=== PATIENT | female | born 1935 | race Caucasian/White ===

== ENCOUNTER 2016-10-14 10:42 | Outpatient (CLI) | payer MEDICARE ==
[2016-10-14 11:27] LABS: #Basophils 0.1 thou/uL (0.0-0.2); #Eosinphils 0.2 thou/uL (0.0-0.7); #Lymphocytes 2.2 thou/uL (1.20-3.40); #Monocytes 0.7 thou/uL (0.11-0.59); #Neutrophils 6.9 thou/uL (1.40-6.50); %Lymphocytes 21.9 % (21.0-51.0); %Monocytes 7.3 % (0.0-10.0); %Neutrophils 67.8 % (42.0-75.0); Hemoglobin 13.7 g/dL (12.0-16.0); Mean Corpuscular HGB CONC 33.6 g/dL (32.0-36.0); Mean Corpuscular Hemoglobin 33.9 pg (27.0-31.0); Mean Platelet Volume 7.9 fL (7.4-10.4); Platelet Count 318 thou/uL (130-400); RBC Distribution Width 12.6 % (11.5-14.5); Red Blood Cell (RBC) Count 4.05 mill/uL (4.20-5.40); White Blood Cell (WBC) Count 10.2 thou/uL (4.8-10.8)
[2016-10-14 11:37] LABS: ALT (SGPT) 20 U/L (8-55); AST (SGOT) 25 U/L (5-34); Albumin 4.6 g/dL (3.4-4.8); Alkaline Phosphatase 87 U/L (40-150); Anion Gap 14 mmol/L (10-20); BUN (Urea Nitrogen) 29 mg/dL (9.8-20.1); Bilirubin, Total 0.4 mg/dL (0.2-1.2); Calc. Creatinine Clearance 0 mL/min (70-130); Calcium 10.3 mg/dL (7.8-10.44); Carbon Dioxide 25 mmol/L (23-31); Cardiac Risk 2.1 (Less than 4.5); Chloride 101 mmol/L (98-107); Cholesterol 187 mg/dL (< 200 Desired); Estimated GFR-MDRD 35; Globulin 3.2 g/dL (2.4-3.5); Glucose 122 mg/dL (83-110); HDL Cholesterol 89 mg/dL (>60 Neg Risk); LDL Cholesterol, Calculated 80 mg/dL; Potassium 3.8 mmol/L (3.5-5.1); Protein, Total 7.8 g/dL (5.8-8.1); Sodium 136 mmol/L (136-145); Triglycerides 89 mg/dL (Less than 150)
[2016-10-14 11:53] LABS: Free T4 (Free Thyroxine) 0.9 ng/dL (0.70-1.48); Thyroid Stimulating Hormone 6.4998 uIU/mL (0.35-4.94)
== END 2016-10-14 10:43 | disposition home or self-care (01) ==
LOC: HPCALD 10:42
PROVIDERS: ATTEND Family Medicine
DX: E03.9 Hypothyroidism, unspecified (principal)
CPT/HCPCS: 36415; 80053; 80061; 84439; 84443; 85025

== ENCOUNTER 2018-08-24 22:39 | Emergency (ER) | payer MEDICARE ==
[~2018-08-24 22:39] MED LIST: Iopamidol 370 76% 100 ML VIAL ONE
[2018-08-24] MEDS ORDERED: Acetaminophen 325 MG TAB ONE ×2 (23:30)
[2018-08-24 23:38] LABS: Band 6 % (5-11); Hemoglobin 13.2 g/dL (12.0-16.0); Lymphocytes 7 % (21-51); MDiff Complete? YES; Mean Corpuscular HGB CONC 33.5 g/dL (32.0-36.0); Mean Corpuscular Hemoglobin 31.7 pg (27.0-31.0); Mean Corpuscular Volume 94.6 fL (78.0-98.0); Mean Platelet Volume 8.8 fL (7.4-10.4); Monocytes 7 % (0-10); Neutrophil 79 % (42-75); Platelet Count 293 thou/uL (130-400); Platelet Morphology Comment Appears Adequate; RBC Distribution Width 11.5 % (11.5-14.5); RBC Morphology Normal; Red Blood Cell (RBC) Count 4.16 mill/uL (4.20-5.40); White Blood Cell (WBC) Count 21.3 thou/uL (4.8-10.8)
[2018-08-24 23:39] LABS: ALT (SGPT) 19 U/L (8-55); AST (SGOT) 30 U/L (5-34); Albumin 4.2 g/dL (3.4-4.8); Alkaline Phosphatase 85 U/L (40-150); Anion Gap 21 mmol/L (10-20); BUN (Urea Nitrogen) 32 mg/dL (9.8-20.1); Bilirubin, Total 0.3 mg/dL (0.2-1.2); CK (CPK) 559 U/L (29-168); Calc. Creatinine Clearance 0 mL/min (70-130); Calcium 10.2 mg/dL (7.8-10.44); Carbon Dioxide 17 mmol/L (23-31); Chloride 101 mmol/L (98-107); Estimated GFR-MDRD 31; Globulin 3.1 g/dL (2.4-3.5); Glucose 171 mg/dL (83-110); Potassium 3.9 mmol/L (3.5-5.1); Protein, Total 7.3 g/dL (6.0-8.3); Sodium 135 mmol/L (136-145)
[2018-08-24] MEDS ORDERED: Fentanyl 100 MCG/2 ML VIAL ONE (23:43)
[2018-08-24] MEDS ORDERED: Aspirin Chewable 81 MG TAB ONE (23:47)
[2018-08-24] MEDS ORDERED: Lorazepam 2 MG/ML VIAL ONE (23:57)
[2018-08-24 23:59] LABS: CKMB 12.8 ng/mL (0-6.6)
[2018-08-25 00:55] LABS: Clarity Slightly Cloudy (Clear); Glucose, Urine (Dipstick) Negative (Negative); Leukocyte Large (Negative); Nitrite Negative (Negative); Protein, Urine (Dipstick) 30 mg/dL (Neg-Trace); Urobilinogen 0.2 mg/dL (0.2-1.0)
[2018-08-25 00:56] LABS: Bilirubin Negative (Negative); Blood, Urine Negative (Negative)
[2018-08-25 00:58] LABS: RBC/HPF 0-3 HPF (0-3)
[2018-08-25 00:59] LABS: Bacteria/HPF 3+ HPF (None Seen)
[2018-08-25] MEDS ORDERED: cefTRIAXone\\ROCEPHIN 1 GM VIAL ONE (01:05)
[2018-08-25] MEDS ORDERED: [UNRECOGNIZED DRUG - OTHER] ONE (01:06)
[2018-08-25] MEDS ORDERED: Admixture Fee 1 EACH ONE (01:07)
[2018-08-25] MEDS ORDERED: Nitroglycerin 50 MG/250 ML BOT 0 ML ONE (01:07)
[2018-08-25] MEDS ORDERED: Sodium Chloride 0.9% 100 ML ONE (01:32)
[2018-08-25] MEDS ORDERED: Lorazepam 2 MG/ML VIAL ONE (01:38)
--- NOTE | 2018-08-25 07:35 | RAD ---
PORTABLE CHEST: DATE: 08/24/2018. FINDINGS: An AP portable film at 07/17/2017 is compared with a 12/27/2014 study. The patient is turned to the side which makes the mediastinum appear wide. The heart size is normal. The lungs are fully inflated and clear. No infiltrate or effusion was seen. No gross fracture was identified. IMPRESSION: Apparent widening of the mediastinum due to rotation of the patient. However, See CT report to adam diaz POS: HOME
--- NOTE | 2018-08-25 07:37 | RAD ---
PELVIS: 08/24/2018 FINDINGS: A single view shows no apparent fracture. The symphysis shows no widening or offset. The hips appea r intact, and the hip joints are symmetrical. The SI joints are unremarkable. The arcuate lines of the sacrum are difficult to see well, but appear basically intact. Some degenerative change is sugge sted in the lower lumbar spine. IMPRESSION: No acute traumatic change. POS: HOME
--- NOTE | 2018-08-25 08:12 | CT ---
PRELIMINARY REPORT/[facility]/EMERGENCY AFTER HOURS PROCEDURE: EXAM: CT Angiography Chest With Contrast EXAM DATE/TIME: 08/25/2018 12:10 AM CLINICAL HISTORY: 82 years old, female; Injury or trauma; Fall; Initial encounter; Blunt trauma; Other: Trunk; Injury d ate: 08/24/18; Injury details: Found on ground; Patient HX: Wide mediastinum on pcxr; Additional info: Movement during scan TECHNIQUE: Axial computed tomographic angiography images of the chest with intravenous contrast using CT angiogr aphy protocol. All CT scans at this facility use at least one of these dose optimization techniques: automated exposure control; mA and/or kV adjustment per patient size (includes targeted exams where d ose is matched to clinical indication); or iterative reconstruction. MIP reconstructed images were created and reviewed. CONTRAST: Contrast Material: 60 ml of ISOVIEW; Contrast Route: 22GA LF AC COMPARISON: No relevant prior studies available. FINDINGS: Limitations: Motion artifact limits this study. Pulmonary arteries: Normal. No pulmonary emboli. 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 Lungs: Mild bilateral lower lobe dependent air space opacity-atelectasis. Pleural space: Normal. No pneumothorax. No pleural effusion. Heart: Heart and vascular structures are grossly normal with no evidence of aortic dissection. Atherosclerotic calcification of the vasculature. Mediastinum: Large 4 x 7 cm hiatal hernia. Mild fluid distention of the esophagus. Lymph nodes: Unremarkable. No enlarged lymph nodes. Bones/joints: No fracture identified however evaluation limited by motion. Soft tissues: Unremarkable. IMPRESSION: 1. Motion artifact limits this study. 2. No fracture identified however evaluation limited by motion. 3. No evidence of thoracic aortic dissection. 4. No evidence of pneumothorax. No evidence of pleural fluid. 5. 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 6. Large 4 x 7 cm hiatal hernia. 7. Mild fluid distention of the esophagus. EXAM: CT Angiography Abdomen and Pelvis With Contrast EXAM DATE/TIME: 08/25/2018 12:10 AM CLINICAL HISTORY: 82 years old, female; Injury or trauma; Fall; Initial encounter; Blunt trauma; Other: Trunk; Injury d ate: 08/24/18; Injury details: Found on ground; Patient HX: Wide mediastinum on pcxr; Additional info: Movement during scan TECHNIQUE: Axial computed tomographic angiography images of the abdomen and pelvis with intravenous contrast mat erial, including non-contrast images if performed. COMPARISON: No relevant prior studies available. FINDINGS: Limitations: Motion artifact limits this study. Mediastinum: Large 4 x 7 cm hiatal hernia. VASCULATURE: Aorta: No evidence of abdominal aortic dissection or aneurysm. Atherosclerotic calcification of the vasculature. Chronic atherosclerotic calcification of the vasculature. Celiac trunk and mesenteric arteries: No occlusion or significant stenosis. Renal arteries: No occlusion or significant stenosis, limited evaluation. Right iliac arteries: No occlusion or significant stenosis, limited evaluation. Left iliac arteries: No occlusion or significant stenosis, limited evaluation. ABDOMEN: Liver: No mass. Gallbladder and bile ducts: Unremarkable. No calcified stones. No ductal dilation. Pancreas: Unremarkable. No mass. No ductal dilation. Spleen: Unremarkable. No splenomegaly. Adrenals: Unremarkable. No mass. Kidneys and ureters: Large 6.5 cm left renal simple cyst. Stomach and bowel: Moderate colonic diverticulosis particularly involving the descending-sigmoid colo n. No radiographic signs of associated inflammation. Appendix: Appendix - not identified. No pericecal inflammatory changes. PELVIS: Bladder: Unremarkable. No mass. Reproductive: Uterus appears within normal limits. ABDOMEN and PELVIS: Intraperitoneal space: Unremarkable. No free air. No significant fluid collection. Bones/joints: No fracture identified however evaluation limited by motion. Chronic degenerative kruse es of the lumbar spine. Soft tissues: Unremarkable. Lymph nodes: Unremarkable. No enlarged lymph nodes. IMPRESSION: 1. Motion artifact limits this study. 2. No evidence of abdominal aortic dissection or aneurysm. 3. No fracture identified however evaluation limited by motion. 4. No evidence of solid organ injury. No evidence of intraperitoneal free fluid. No evidence of intra peritoneal free air. 5. Large 4 x 7 cm hiatal hernia. 6. Moderate colonic diverticulosis particularly involving the descending-sigmoid colon. No radiograph ic signs of associated inflammation. Impression. Thank you for allowing us to participate in the care of your patient. Dictated and Authenticated by: Taylor Key MD 08/25/2018 12:48 AM Central Time ([place] & [place]) FINAL REPORT CTA AORTIC DISSECTION PROTOCOL: DATE: 08/25/2018. FINDINGS: Spiral CT of the chest, abdomen, and pelvis was done using an aortic dissection protocol. Axial slic es were acquired, then coronal and sagittal reconstructions were done. CT ANGIO OF THORAX: There is good opacification of the aorta and pulmonary arteries. There is no evidence of aortic diss ection. Arteriosclerotic change is present in the aorta and in the coronary vessels. The ascending aorta is mildly dilated measuring 3.5 cm in diameter. There is no sign of pericardial effusion. The lungs show some fibrotic change and dependent atelectasis. There is no evidence of pneumothorax, pn eumonia, or significant pleural effusion. Motion artifact limits detail on this study, but no gross fractures were identified. CT OF THE ABDOMEN AND PELVIS: CT of the abdomen and pelvis showed a large hiatal hernia. The abdominal aorta was patent and showed no dissection. The celiac artery, SMA, and JOHN are patent, though arteriosclerotic change is sugges ermias in each of them. Both renal arteries fill as well as both iliac arteries. All major organs are intact with no sign of laceration or hematoma. The liver, spleen, pancreas, and kidneys showed no acute change. There is a large 6.8 cm cyst attached to the left kidney that is mo st likely a simple cyst as CT numbers are rather low. No stones are seen in the gallbladder. The bowel shows no distention. No free air or free fluid was seen. Diverticulosis is noted in the left colon. The pelvis showed no pelvic masses, fluid collections, or inflammatory changes. The lumbar spine and bony pelvis grossly appeared intact with no obvious fracture, but detail is limi ermias due to patient motion. There is a mild spondylolisthesis of L4 on L5 that appears to be due to d egenerative change. IMPRESSION: Exam limited by motion artifact, but no evidence of aortic dissection. Mild dilation of the ascendin g aorta. No traumatic findings in the major organs. Other changes as listed above. Report in agreement with preliminary reading by Dianxin. POS: HOME
== END 2018-08-25 02:25 | disposition short-term general hospital (02) ==
LOC: BURERS 22:39
DX: I21.4 Non-ST elevation (NSTEMI) myocardial infarction (principal); N39.0 Urinary tract infection, site not specified
CPT/HCPCS: 36415; 71045; 71275; 72170; 80053; 81003; 81015; 82550; 82553; 84484; 85025; 93005; 96361; 96365; 96375; 96376; J0696; J2060; J3010; J3370; J7050; Q9967